=== PATIENT | male | born 1965 | race Caucasian/White ===

== ENCOUNTER 2020-10-08 13:28 | Inpatient (IN) | payer MEDICARE, OTHER ==
[~2020-10-08] VITALS: Ht 193 cm; Wt 152.8 kg
[~2020-10-08 13:28] MED LIST: DILTIAZEM 24HR360 MG PO
[2020-10-08 14:21] LABS: HEMOGLOBIN 15.3 gm/dl (14.0-17.5); RED BLOOD COUNT 5.25 M/UL (4.20-5.50)
[2020-10-08 14:42] LABS: BUN/CREATININE RATIO 20 (0-10)
[2020-10-08 17:58] LABS: BUN/CREATININE RATIO 20 (0-10)
[2020-10-09 05:38] LABS: HEMOGLOBIN 14.4 gm/dl (14.0-17.5); RED BLOOD COUNT 4.92 M/UL (4.20-5.50)
[2020-10-09 06:03] LABS: BUN/CREATININE RATIO 18 (0-10)
[2020-10-09] MEDS ORDERED: PROAIR HFA8.5 GM INH (12:10)
[2020-10-09] MEDS ORDERED: ELIQUIS5 MG PO (12:11)
[2020-10-09] MEDS ORDERED: TAMSULOSIN HCL0.4 MG PO (12:11)
[2020-10-09] MEDS ORDERED: FUROSEMIDE40 MG PO (12:12)
[2020-10-09] MEDS ORDERED: JARDIANCE25 MG PO (12:13)
[2020-10-09] MEDS ORDERED: POTASSIUM CHLO20 ME1 PO (12:13)
[2020-10-09] MEDS ORDERED: DIGOX250 MCG PO (12:16)
[2020-10-09] MEDS ORDERED: LEVOTHYROXINE50 MCG PO (12:18)
[2020-10-10 05:28] LABS: HEMOGLOBIN 14.5 gm/dl (14.0-17.5); RED BLOOD COUNT 4.97 M/UL (4.20-5.50); WHITE BLOOD COUNT 15.4 K/UL (4.5-11.0)
[2020-10-10 05:58] LABS: BUN/CREATININE RATIO 18 (0-10)
[2020-10-11 04:34] LABS: HEMOGLOBIN 14.4 gm/dl (14.0-17.5); RED BLOOD COUNT 5.01 M/UL (4.20-5.50)
[2020-10-11 05:02] LABS: BUN/CREATININE RATIO 19 (0-10)
[2020-10-12 04:40] LABS: BUN/CREATININE RATIO 21 (0-10)
--- NOTE | 2020-10-13 02:16 | NUR ---
PATIENT WAS TRANSFERRED FROM ICU TO PCU AT 2130 ON 10/12/20. PATIENTS VITALS WERE STABLE AND FOLLOWS: 108/78 (85), 120 HR, 97% O2, 21 RR. THE PATIENT REQUIRES OXYGEN AT 2L AND IS TACHYCARDIAC, MD AWARE. PER REPORT, HE CAN BE BRADYCARDIAC WHEN HE SLEEPS. HIS CURRENT RHYTHM IS AFIB. HE HAS CELLULITIS TO THE BILATERAL LOWER EXTREMITIES. 20G IN THE RIGHT AC, SL. ALERT AND OREINTED X4, USES URINAL AT BEDSIDE AND IS A FULL CODE.
[2020-10-13 06:16] LABS: BUN/CREATININE RATIO 19 (0-10)
[2020-10-13 10:10] LABS: RED BLOOD COUNT 5.51 M/UL (4.20-5.50)
[2020-10-13 10:26] LABS: WHITE BLOOD COUNT 9.2 K/UL (4.5-11.0)
--- NOTE | 2020-10-13 12:30 | NUR ---
ATTEMPTED TO CALL DR THOMAS FOR ID CONSULT. PHONE #[phone] GOING TO VOICE MAIL. WILL CONTINUE TO TRY TO CALL
[2020-10-14 02:45] LABS: HEMOGLOBIN 16.1 gm/dl (14.0-17.5); RED BLOOD COUNT 5.61 M/UL (4.20-5.50); WHITE BLOOD COUNT 10.1 K/UL (4.5-11.0)
[2020-10-14 03:21] LABS: BUN/CREATININE RATIO 17 (0-10)
[2020-10-15 01:07] LABS: 6-ACETYLMORPHINE Negative (.); CODEINE Negative (.); DIHYDROCODEINE Negative (.); HYDROCODONE 1.3 ng/mL (.); HYDROMORPHONE Negative (.); MORPHINE Negative (.); OPIATE CONFIRMATION Positive (.)
[2020-10-15 05:22] LABS: HEMOGLOBIN 16.4 gm/dl (14.0-17.5); RED BLOOD COUNT 5.97 M/UL (4.20-5.50); WHITE BLOOD COUNT 12.8 K/UL (4.5-11.0)
[2020-10-15 05:32] LABS: BUN/CREATININE RATIO 18 (0-10)
--- NOTE | 2020-10-15 10:06 | NUR ---
NOTIFIED BY TELE JOINER PATIENT DIONTE 24. DR. BRITT NOTIFIED AT THIS TIME. NEW ORDERS: CARDIO CONSULT FOR TACHY/DIONTE
[2020-10-15] MEDS ORDERED: LOPRESSOR 50 MG50 MG PO (16:53)
[2020-10-15] MEDS ORDERED: AUGMENTIN 875-1 EACH PO (16:53)
[2020-10-15] MEDS ORDERED: PROTONIX40 MG PO (16:53)
[2020-10-15] MEDS ORDERED: BACTRIM DS TAB1 EACH PO (16:53)
[2020-10-15] MEDS ORDERED: TYLENOL325 MG PO (16:53)
[2020-10-15] MEDS ORDERED: ZESTRIL5 MG PO (16:53)
[2020-10-25 15:11] LABS: CANNABIDIOL Negative (.); CANNABINOID CONFIRMATION Positive (.); CANNABINOL Negative (.); CARBOXY-THC 12.6 ng/mL (.); HYDROXY-THC Negative (.); TETRAHYDROCANNABINOL(THC) Negative (.)
== END 2020-10-15 18:17 | disposition home or self-care (01) | DRG 871 ==
LOC: ER1 13:28 → CCU 16:00 → CDU 16:00 → CCU 19:30 → PROG CARE 10-12 21:34 → MED SURG 4 10-14 19:00
PROVIDERS: Emergency Medicine; Internal Medicine; ADMIT Internal Medicine
PROC: B24BZZ4 Ultrasonography of Heart with Aorta, Transesophageal (ICD-10-PCS; principal; 2020-10-11)
DX: A41.02 Sepsis due to Methicillin resistant Staphylococcus aureus (principal); R65.21 Severe sepsis with septic shock; J96.01 Acute respiratory failure with hypoxia; J18.9 Pneumonia, unspecified organism; L03.116 Cellulitis of left lower limb; E87.1 Hypo-osmolality and hyponatremia; I48.20 Chronic atrial fibrillation, unspecified; I50.22 Chronic systolic (congestive) heart failure; E66.2 Morbid (severe) obesity with alveolar hypoventilation; L03.115 Cellulitis of right lower limb; F10.139 Alcohol abuse with withdrawal, unspecified; I42.9 Cardiomyopathy, unspecified; Z68.41 Body mass index [BMI] 40.0-44.9, adult; A40.1 Sepsis due to streptococcus, group B; Z20.822 Contact with and (suspected) exposure to COVID-19; I48.0 Paroxysmal atrial fibrillation; F12.10 Cannabis abuse, uncomplicated; N40.0 Benign prostatic hyperplasia without lower urinary tract symptoms; E03.9 Hypothyroidism, unspecified; E11.51 Type 2 diabetes mellitus with diabetic peripheral angiopathy without gangrene; F19.10 Other psychoactive substance abuse, uncomplicated; I87.8 Other specified disorders of veins; Z79.01 Long term (current) use of anticoagulants; Z87.891 Personal history of nicotine dependence; Z82.49 Family history of ischemic heart disease and other diseases of the circulatory system
CPT/HCPCS: ECHO; 36415; 36600; 71045; 80048; 80053; 80162; 80202; 80307; 81001; 82550; 82553; 82570; 82803; 82962; 83605; 83735; 83874; 83880; 84100; 84300; 84439; 84443; 84484; 85025; 85610; 85652; 86140; 87040; 87070; 87077; 87086; 87186; 87205; 89050; 93005; 93306; 96374; 96375; 99285; C9113; J1120; J1160; J1205; J1335; J2185; J2270; J2405; J2543; J3370; J7030; J7050; J7070; U0002

== ENCOUNTER → 2021-06-30 | Outpatient (CLI) | payer MEDICARE, OTHER ==
[~2021-06-30] MED LIST changes: +ASPIRIN81 MG PO; +AUGMENTIN 875-1 EACH PO; +BACTRIM DS TAB1 EACH PO; +DAILY VALUE1 EACH PO; +DIGOX250 MCG PO; +ELIQUIS5 MG PO; +ENTRESTO 24 MG1 EACH PO; +FUROSEMIDE40 MG PO; +JARDIANCE25 MG PO; +LEVOTHYROXINE50 MCG PO; +LIPITOR TAB 2020 MG PO; +LOPRESSOR 50 MG50 MG PO; +MAGNESIUM OXID400 M2 PO; +NITROSTAT 0.4100 TAB SL; +POTASSIUM CHLO20 ME1 PO; +PROAIR HFA8.5 GM INH; +PROTONIX40 MG PO; +SPIRONOLACTONE25 MG PO; +TAMSULOSIN HCL0.4 MG PO; +TYLENOL325 MG PO; +ZESTRIL5 MG PO; +[UNRECOGNIZED DRUG - SUPPLY] MC
[2021-06-30 09:23] LABS: HEMOGLOBIN 17.5 gm/dl (14.0-17.5); RED BLOOD COUNT 6.38 M/UL (4.20-5.50); WHITE BLOOD COUNT 9.3 K/UL (4.5-11.0)
== END ==
LOC: LAB 08:40
PROVIDERS: Internal Medicine Cardiovascular Disease
DX: I42.0 Dilated cardiomyopathy (principal); I45.4 Nonspecific intraventricular block; I48.19 Other persistent atrial fibrillation; I11.0 Hypertensive heart disease with heart failure; I44.2 Atrioventricular block, complete; I50.22 Chronic systolic (congestive) heart failure
CPT/HCPCS: 36415; 71046; 80048; 85025

== ENCOUNTER → 2021-07-04 | Outpatient (CLI) | payer MEDICARE, OTHER | LOC: CATH 07:09 | DX: Z45.02 Encounter for adjustment and management of automatic implantable cardiac defibrillator (principal); I11.0 Hypertensive heart disease with heart failure; I50.42 Chronic combined systolic (congestive) and diastolic (congestive) heart failure; E11.9 Type 2 diabetes mellitus without complications; I42.0 Dilated cardiomyopathy; I42.8 Other cardiomyopathies; I48.21 Permanent atrial fibrillation; I45.4 Nonspecific intraventricular block; I44.7 Left bundle-branch block, unspecified; M10.9 Gout, unspecified; Z79.4 Long term (current) use of insulin; Z79.51 Long term (current) use of inhaled steroids; Z79.82 Long term (current) use of aspirin; Z79.02 Long term (current) use of antithrombotics/antiplatelets; Z79.899 Other long term (current) drug therapy; Z79.01 Long term (current) use of anticoagulants; Z79.84 Long term (current) use of oral hypoglycemic drugs; Z79.1 Long term (current) use of non-steroidal anti-inflammatories (NSAID) | CPT/HCPCS: 82962; J7040 ==

== ENCOUNTER → 2021-07-31 | Outpatient (CLI) | payer MEDICARE, OTHER ==
[~2021-07-31] MED LIST changes: +CLEOCIN HCL300 MG PO; +CORLANOR5 MG/5 ML PO; +DIGOXIN125 MCG PO; +FLOMAX 0.4 MG0.4 MG PO; +HYDROCODON-ACE1 EAC4 PO; +LEVEMIR 10100 UNITS/ SQ; +LEVOFLOXACIN500 MG PO; -LIPITOR TAB 2020 MG PO; +LIPITOR40 MG PO; +METOPROLOL SUC100 MG PO; -TAMSULOSIN HCL0.4 MG PO; +TOPROL XL50 MG PO
[2021-07-31 14:59] LABS: HEMOGLOBIN 18.1 gm/dl (14.0-17.5); RED BLOOD COUNT 6.18 M/UL (4.20-5.50); WHITE BLOOD COUNT 8.9 K/UL (4.5-11.0)
[2021-07-31 15:32] LABS: BUN/CREATININE RATIO 20 (0-10)
== END ==
LOC: LAB 14:29
PROVIDERS: Internal Medicine Cardiovascular Disease
DX: I42.0 Dilated cardiomyopathy (principal); I45.4 Nonspecific intraventricular block; I48.19 Other persistent atrial fibrillation; I11.0 Hypertensive heart disease with heart failure; I50.22 Chronic systolic (congestive) heart failure; I44.2 Atrioventricular block, complete
CPT/HCPCS: 36415; 71046; 80048; 85025

== ENCOUNTER 2021-08-01 06:44 | Outpatient (CLI) | payer MEDICARE, OTHER ==
[~2021-08-01] VITALS: Ht 193 cm; Wt 156.5 kg
[~2021-08-01 06:44] MED LIST changes: -CLEOCIN HCL300 MG PO; -CORLANOR5 MG/5 ML PO; -DIGOXIN125 MCG PO; -HYDROCODON-ACE1 EAC4 PO; -LEVEMIR 10100 UNITS/ SQ; -LEVOFLOXACIN500 MG PO; -METOPROLOL SUC100 MG PO; -PROAIR HFA8.5 GM INH; -TOPROL XL50 MG PO
[2021-08-01] MEDS ORDERED: DIGOXIN125 MCG PO (07:26)
[2021-08-01] MEDS ORDERED: ENTRESTO 24 MG1 EACH PO (07:27)
[2021-08-01] MEDS ORDERED: LEVEMIR 10100 UNITS/ SQ (07:28)
[2021-08-01] MEDS ORDERED: PROAIR HFA8.5 GM INH (12:10)
[2021-08-01] MEDS ORDERED: HYDROCODON-ACE1 EAC4 PO (12:16)
[2021-08-01] MEDS ORDERED: CLEOCIN HCL300 MG PO (12:16)
[2021-08-01] MEDS ORDERED: CORLANOR5 MG/5 ML PO (12:16)
[2021-08-01] MEDS ORDERED: LEVOFLOXACIN500 MG PO (12:16)
[2021-08-01] MEDS ORDERED: METOPROLOL SUC100 MG PO (14:40)
[2021-08-01] MEDS ORDERED: POTASSIUM CHLO20 ME1 PO (14:41)
[2021-08-01] MEDS ORDERED: TOPROL XL50 MG PO (15:51)
== END 2021-08-02 12:39 | disposition home or self-care (01) ==
LOC: CATH 06:44 → PROG CARE 06:44 → CATH 08:00 → PROG CARE 13:35 → CATH 08-02 12:39
DX: I48.21 Permanent atrial fibrillation (principal); I11.0 Hypertensive heart disease with heart failure; I50.42 Chronic combined systolic (congestive) and diastolic (congestive) heart failure; E11.9 Type 2 diabetes mellitus without complications; I42.0 Dilated cardiomyopathy; I42.8 Other cardiomyopathies; I45.4 Nonspecific intraventricular block; I44.7 Left bundle-branch block, unspecified; Z79.51 Long term (current) use of inhaled steroids; Z79.82 Long term (current) use of aspirin; Z79.02 Long term (current) use of antithrombotics/antiplatelets; Z79.83 Long term (current) use of bisphosphonates; Z79.4 Long term (current) use of insulin; Z79.84 Long term (current) use of oral hypoglycemic drugs; Z79.890 Hormone replacement therapy; Z79.899 Other long term (current) drug therapy
CPT/HCPCS: 33225; 33249; 71045; 82962; 92960; 93005; 93641; 94664; 94760; 99152; 99153; C1751; C1769; C1777; C1882; C1898; C1900; J1160; J1644; J1742; J2250; J3010; J3370; J7040; J7050; J7070; Q9965

== ENCOUNTER → 2021-10-11 | Emergency (ER) | payer MEDICARE, OTHER ==
[~2021-10-11] MED LIST changes: +CLEOCIN HCL300 MG PO; +CORLANOR5 MG/5 ML PO; +DIGOXIN125 MCG PO; +HYDROCODON-ACE1 EAC4 PO; +LEVEMIR 10100 UNITS/ SQ; +LEVOFLOXACIN500 MG PO; +METOPROLOL SUC100 MG PO; +PROAIR HFA8.5 GM INH; +TOPROL XL50 MG PO
== END | disposition left against medical advice (07) ==
LOC: ER1 10:13
DX: Z53.21 Procedure and treatment not carried out due to patient leaving prior to being seen by health care provider (principal)

== ENCOUNTER → 2021-10-11 | Outpatient (CLI) | payer MEDICARE, OTHER ==
[2021-10-11 11:24] LABS: HEMOGLOBIN 17.9 gm/dl (14.0-17.5); RED BLOOD COUNT 6.04 M/UL (4.20-5.50); WHITE BLOOD COUNT 10.9 K/UL (4.5-11.0)
[2021-10-11 11:58] LABS: BUN/CREATININE RATIO 15 (0-10)
== END ==
LOC: LAB 09:36
PROVIDERS: Internal Medicine Cardiovascular Disease; Physician Assistant
DX: I48.91 Unspecified atrial fibrillation (principal); I10 Essential (primary) hypertension; R60.0 Localized edema; I50.22 Chronic systolic (congestive) heart failure; R00.2 Palpitations; R06.02 Shortness of breath; Z95.0 Presence of cardiac pacemaker
CPT/HCPCS: 36415; 71046; 80048; 80162; 85025

== ENCOUNTER → 2021-10-13 | Outpatient (CLI) | payer MEDICARE, OTHER | LOC: CATH 08:40 | DX: I48.21 Permanent atrial fibrillation (principal); I48.92 Unspecified atrial flutter; I42.0 Dilated cardiomyopathy; I11.0 Hypertensive heart disease with heart failure; I50.22 Chronic systolic (congestive) heart failure; I44.7 Left bundle-branch block, unspecified; Z95.810 Presence of automatic (implantable) cardiac defibrillator; N52.9 Male erectile dysfunction, unspecified; E11.9 Type 2 diabetes mellitus without complications; Z79.4 Long term (current) use of insulin; Z79.82 Long term (current) use of aspirin; Z79.01 Long term (current) use of anticoagulants; Z79.899 Other long term (current) drug therapy; Z86.16 Personal history of COVID-19; Z82.49 Family history of ischemic heart disease and other diseases of the circulatory system | CPT/HCPCS: 82962; 85347; 93005; 93650; 99152; 99153; C1733; C1760; C1766; J1644; J2250; J3010; Q9965 ==